=== PATIENT | male | born 1940 | race Caucasian/White ===

== ENCOUNTER 2020-07-04 03:20 | Emergency (ER) | payer MEDICARE, BC ==
[~2020-07-04] VITALS: Ht 175.3 cm; Wt 90.9 kg
[2020-07-04 03:30] VITALS: BP 165/92
[2020-07-04] MEDS ORDERED: valacyclovir 500mg tablet PO ONE (04:00)
[2020-07-04] MEDS ORDERED: valacyclovir 500mg tablet PO SCH (04:00)
[2020-07-04] MEDS ORDERED: VALA100031 PO (04:01)
== END 2020-07-04 04:30 | disposition home or self-care (01) ==
LOC: ER 03:21
DX: B02.9 Zoster without complications (principal); M25.511 Pain in right shoulder; I10 Essential (primary) hypertension; E78.00 Pure hypercholesterolemia, unspecified; Z88.0 Allergy status to penicillin; Z79.899 Other long term (current) drug therapy
CPT/HCPCS: 99283

== ENCOUNTER 2022-04-29 10:58 | Emergency (ER) | payer MEDICARE, BC ==
[~2022-04-29] VITALS: Ht 175.3 cm; Wt 90.0 kg
[~2022-04-29 10:58] MED LIST: APIX5TAB3 PO; CEPH250T PO; LISI20TA28 PO; METO-384 PO
[2022-04-29 14:33] VITALS: BP 157/82
[2022-04-29] MEDS ORDERED: CYCL-1 PO (15:59)
== END 2022-04-29 16:17 | disposition home or self-care (01) ==
LOC: ER 10:58
DX: S86.811A Strain of other muscle(s) and tendon(s) at lower leg level, right leg, initial encounter (principal); I51.9 Heart disease, unspecified; Z88.0 Allergy status to penicillin; X58.XXXA Exposure to other specified factors, initial encounter; Y93.89 Activity, other specified; Y92.89 Other specified places as the place of occurrence of the external cause; Y99.8 Other external cause status
CPT/HCPCS: 93971; 99284

== ENCOUNTER 2022-12-24 21:12 | Emergency (ER) | payer MEDICARE, BC ==
[~2022-12-24] VITALS: Ht 177.8 cm; Wt 90.9 kg
[~2022-12-24 21:12] MED LIST changes: +CYCL-1 PO
[2022-12-24 21:25] VITALS: TEMP 97.3
[2022-12-24] MEDS ORDERED: normal saline 1000ml 1,000 ML IV ONE (22:05)
[2022-12-24 22:35] LABS: BASOPHILS % (AUTO) 0.6 % (0-1); EOSINOPHILS % (AUTO) 0 % (0-6); HEMATOCRIT 48.6 % (42.0-52.0); HEMOGLOBIN 16.4 g/dl (14.0-17.9); LYMPHOCYTES # (AUTO) 0.3 X10'3 (1.1-4.8); LYMPHOCYTES % (AUTO) 3.6 % (21-51); MEAN CORPUSCULAR HEMOGLOBIN 31.5 PG (27.0-31.0); MEAN CORPUSCULAR HGB CONC 33.7 g/dL (33.0-36.5); MEAN CORPUSCULAR VOLUME 93.3 FL (78-98); MEAN PLATELET VOLUME 9.3 FL (7.4-10.4); MONOCYTES # (AUTO) 1.2 X10'3 (0-0.9); MONOCYTES % (AUTO) 14.9 % (2-12); NEUTROPHILS # (AUTO) 6.7 X10'3 (1.8-7.7); NEUTROPHILS % (AUTO) 80.9 % (42-75); PLATELET COUNT 173 X10'3 (140-440); RED BLOOD COUNT 5.21 X10'6 (4.70-6.10); WHITE BLOOD COUNT 8.3 X10'3 (4.5-11.0)
[2022-12-24 22:56] LABS: ALANINE AMINOTRANSFERASE 42 U/L (12-78); ALBUMIN 3.8 G/DL (3.4-5.0); ALKALINE PHOSPHATASE 72 IU/L (46-116); ANION GAP 12 (8-16); ASPARTATE AMINO TRANSFERASE 34 U/L (10-37); BILIRUBIN,TOTAL 0.8 MG/DL (0.1-1.0); BLOOD UREA NITROGEN 22 MG/DL (7-18); BUN/CREATININE RATIO 22.2 (10.0-20.0); CALCIUM 8.9 MG/DL (8.5-10.1); CHLORIDE 97 MMOL/L (99-107); CREATININE 0.99 MG/DL (0.60-1.10); GLUCOSE 119 MG/DL (70-104); POTASSIUM 4.4 MMOL/L (3.5-5.1); SODIUM 132 MMOL/L (135-145); TOTAL CARBON DIOXIDE 22.7 MMOL/L (24-32); TOTAL PROTEIN 7.5 G/DL (6.4-8.2); eCRCL 58 ML/MIN; eGFR 72 ML/MIN
[2022-12-24 22:59] VITALS: BP 151/87; PULSE 112; RESP 18; O2SAT 96
[2022-12-24 23:00] LABS: PRO BRAIN NATRIURETIC PEPTIDE 400 PG/ML (0-450)
[2022-12-24] MEDS ORDERED: azithromycin 250mg tablet PO ONE (23:10)
[2022-12-24] MEDS ORDERED: AZIT-164 PO (23:10)
[2022-12-24] MEDS ORDERED: ALBU8HFA PO (23:10)
== END 2022-12-24 23:24 | disposition home or self-care (01) ==
LOC: ER 21:13
DX: U07.1 COVID-19 (principal); J20.9 Acute bronchitis, unspecified; Z88.0 Allergy status to penicillin; Z79.899 Other long term (current) drug therapy; Z79.2 Long term (current) use of antibiotics
CPT/HCPCS: 71046; 80053; 83605; 83880; 85025; 87040; 87502; 87503; 87811; 96360; 99284; J7030